=== PATIENT | female | born 1990 | race Hispanic/Latino ===

== ENCOUNTER 2018-11-20 18:42 | Emergency (ER) | payer MEDICAID ==
[~2018-11-20 18:42] MED LIST: IBUP-2070 PO; TRAM50TA4 PO
[2018-11-20] MEDS ORDERED: ACETAMINOPHEN 325 MG TAB ONE (19:17)
[2018-11-20 19:27] LABS: APPEARANCE,URINE SLIGHTLY CLOUDY (CLEAR); BILIRUBIN,URINE Negative (NEGATIVE); COLOR,URINE Yellow (YELLOW); GLUCOSE, URINE (UA) Negative (NEGATIVE); KETONES,URINE Negative (NEGATIVE); LEUKOCYTE ESTERASE ,URINE Moderate (NEGATIVE); NITRATE,URINE Negative (NEGATIVE); OCCULT BLOOD,URINE Negative (NEGATIVE); PH,URINE 5.5 (5.0-8.0); PROTEIN,URINE Negative (NEGATIVE)
[2018-11-20 19:32] LABS: BACTERIA,URINE Few /HPF (None Seen); SQUAMOUS EPITHELIAL CELL,UR Few /HPF (0-2)
[2018-11-20 19:44] LABS: BASOPHILS % (AUTO) 0.5 % (0.0-5.0); EOSINOPHILS % (AUTO) 0.8 % (0.0-8.0); HEMATOCRIT 34.8 % (36-48); LYMPHOCYTES % (AUTO) 26.9 % (21.0-51.0); MEAN CORPUSCULAR HEMOGLOBIN 28.1 pg (27.0-33.0); MEAN CORPUSCULAR HGB CONC 33.6 g/dL (32.0-36.0); MEAN CORPUSCULAR VOLUME 83.6 fL (79-99); MONOCYTES % (AUTO) 5.7 % (3.0-13.0); NEUTROPHILS % (AUTO) 66.1 % (40.0-77.0); NUCLEATED RED BLOOD CELLS 0.1 % (0.0-0.19); PLATELET COUNT (AUTO) 260 K/uL (130-400); RED BLOOD CELL COUNT(AUTO) 4.16 MIL/uL (4.00-5.50); RED CELL DISTRIBUTION WIDTH 14.8 % (11.0-15.5); WHITE BLOOD COUNT (AUTO) 8.3 K/uL (4.8-10.8)
[2018-11-20 19:50] LABS: CREATININE 0.6 mg/dL (0.5-1.5); POTASSIUM 3.3 mmol/L (3.5-5.1)
[2018-11-20 20:15] LABS: ALBUMIN 3.9 g/dL (3.5-5.0); BILIRUBIN,TOTAL 0.2 mg/dL (0.2-1.0); TOTAL PROTEIN, SERUM 8.1 g/dL (6.0-8.3)
[2018-11-20] MEDS ORDERED: MAGNESIUM OXIDE 400 MG TABLET PO ONE (20:59)
[2018-11-20] MEDS ORDERED: POTASSIUM CHLORIDE 20 MEQ ERTAB PO ONE (20:59)
[2018-11-20] MEDS ORDERED: NITROFURANTOIN MONOHYD/M-CRYST 100 MG CAPSULE PO ONE (21:00)
== END 2018-11-20 21:16 | disposition home or self-care (01) ==
LOC: EDH 18:42
DX: O20.0 Threatened abortion (principal); O23.41 Unspecified infection of urinary tract in pregnancy, first trimester; E87.6 Hypokalemia; Z3A.01 Less than 8 weeks gestation of pregnancy; Z90.49 Acquired absence of other specified parts of digestive tract
CPT/HCPCS: 36415; 76817; 80053; 81001; 84702; 85025; 86900; 86901

== ENCOUNTER 2019-02-02 18:12 | Emergency (ER) | payer MEDICAID ==
[2019-02-02] MEDS ORDERED: DICYCLOMINE HCL 10 MG/ML 2ML AMP IM ONE (18:33)
[2019-02-02] MEDS ORDERED: LACTATED RINGERS 1000ML 1,000 ML IV ONE (18:33)
[2019-02-02] MEDS ORDERED: ONDANSETRON HCL 4 MG/2 ML VIAL ONE (18:33)
[2019-02-02 18:54] LABS: BASOPHILS % (AUTO) 0.5 % (0.0-5.0); EOSINOPHILS % (AUTO) 0.7 % (0.0-8.0); HEMATOCRIT 32.5 % (36-48); LYMPHOCYTES % (AUTO) 23.5 % (21.0-51.0); MEAN CORPUSCULAR HEMOGLOBIN 30.2 pg (27.0-33.0); MEAN CORPUSCULAR HGB CONC 35.4 g/dL (32.0-36.0); MEAN CORPUSCULAR VOLUME 85.3 fL (79-99); MONOCYTES % (AUTO) 5.5 % (3.0-13.0); NEUTROPHILS % (AUTO) 69.8 % (40.0-77.0); PLATELET COUNT (AUTO) 229 K/uL (130-400); RED BLOOD CELL COUNT(AUTO) 3.81 MIL/uL (4.00-5.50); RED CELL DISTRIBUTION WIDTH 13.1 % (11.0-15.5); WHITE BLOOD COUNT (AUTO) 7.2 K/uL (4.8-10.8)
[2019-02-02 18:57] LABS: CREATININE 0.4 mg/dL (0.5-1.5); POTASSIUM 3.8 mmol/L (3.5-5.1)
[2019-02-02 19:03] LABS: ALBUMIN 2.9 g/dL (3.5-5.0); BILIRUBIN,TOTAL 0.2 mg/dL (0.2-1.0); TOTAL PROTEIN, SERUM 6.9 g/dL (6.0-8.3)
[2019-02-02 20:22] LABS: APPEARANCE,URINE Cloudy (CLEAR); BILIRUBIN,URINE Negative (NEGATIVE); COLOR,URINE Yellow (YELLOW); GLUCOSE, URINE (UA) Negative (NEGATIVE); KETONES,URINE 40 mg/dL (NEGATIVE); LEUKOCYTE ESTERASE ,URINE Moderate (NEGATIVE); NITRATE,URINE Negative (NEGATIVE); OCCULT BLOOD,URINE Negative (NEGATIVE); PROTEIN,URINE Negative (NEGATIVE)
[2019-02-02] MEDS ORDERED: CEFTRIAXONE SODIUM 1 GM ONE (20:27)
[2019-02-02] MEDS ORDERED: SODIUM CHLORIDE 0.9% 50 ML IV ONE (20:27)
[2019-02-02 20:42] LABS: BACTERIA,URINE Few /HPF (None Seen)
[2019-02-02 20:43] LABS: SQUAMOUS EPITHELIAL CELL,UR 30-50 /HPF (0-2)
== END 2019-02-02 21:08 | disposition home or self-care (01) ==
LOC: EDH 18:12
DX: O23.42 Unspecified infection of urinary tract in pregnancy, second trimester (principal); O26.892 Other specified pregnancy related conditions, second trimester; R10.2 Pelvic and perineal pain; Z3A.16 16 weeks gestation of pregnancy; Z90.49 Acquired absence of other specified parts of digestive tract
CPT/HCPCS: 36415; 76805; 80053; 81001; 85025; 96372 ×2; 99285; J0500; J0696; J2405; J7120

== ENCOUNTER 2020-02-28 18:18 | Emergency (ER) | payer MEDICAID ==
[2020-02-28] MEDS ORDERED: PROMETHAZINE HCL 25 MG/ML 1ML AMPULE IM ONE (18:19)
[2020-02-28] MEDS ORDERED: SODIUM CHLORIDE 0.9% 1000ML 1,000 ML IV ONE (18:19)
[2020-02-28] MEDS ORDERED: KETOROLAC TROMETHAMINE 30MG/ML ONE (18:49)
[2020-02-28] MEDS ORDERED: CYCLOBENZAPRINE HCL 10 MG TABLET ONE (18:50)
[2020-02-28 19:11] LABS: BASOPHILS % (AUTO) 0.6 % (0.0-5.0); EOSINOPHILS % (AUTO) 1.2 % (0.0-8.0); HEMATOCRIT 36.5 % (36-48); LYMPHOCYTES % (AUTO) 42.1 % (21.0-51.0); MEAN CORPUSCULAR HEMOGLOBIN 26.9 pg (27.0-33.0); MEAN CORPUSCULAR HGB CONC 32.3 g/dL (32.0-36.0); MEAN CORPUSCULAR VOLUME 83.1 fL (79-99); MONOCYTES % (AUTO) 5.4 % (3.0-13.0); NEUTROPHILS % (AUTO) 50.4 % (40.0-77.0); PLATELET COUNT (AUTO) 280 K/uL (130-400); RED BLOOD CELL COUNT(AUTO) 4.39 MIL/uL (4.00-5.50); RED CELL DISTRIBUTION WIDTH 13.6 % (11.0-15.5); WHITE BLOOD COUNT (AUTO) 6.6 K/uL (4.8-10.8)
[2020-02-28 19:22] LABS: CREATININE 0.6 mg/dL (0.5-1.5); POTASSIUM 3.6 mmol/L (3.5-5.1)
[2020-02-28 19:32] LABS: ALBUMIN 4.3 g/dL (3.5-5.0); BILIRUBIN,TOTAL 0.2 mg/dL (0.2-1.0); TOTAL PROTEIN, SERUM 8.3 g/dL (6.0-8.3)
== END 2020-02-28 21:21 | disposition home or self-care (01) ==
LOC: EDH 18:18
DX: G44.209 Tension-type headache, unspecified, not intractable (principal); R03.0 Elevated blood-pressure reading, without diagnosis of hypertension; F41.9 Anxiety disorder, unspecified; Z98.890 Other specified postprocedural states
CPT/HCPCS: 36415; 70450; 71045; 80053; 84702; 85025; 96365; 96366; 96375; 99285; J1885; J2550; J7030

== ENCOUNTER 2021-02-17 06:55 | Emergency (ER) | payer OTHER, MEDICAID ==
[~2021-02-17] VITALS: Ht 152.4 cm; Wt 65.8 kg
[2021-02-17 07:37] LABS: BASOPHILS % (AUTO) 0.4 % (0.0-5.0); EOSINOPHILS % (AUTO) 0.2 % (0.0-8.0); LYMPHOCYTES % (AUTO) 8.1 % (21.0-51.0); MEAN CORPUSCULAR HEMOGLOBIN 27.7 pg (27.0-33.0); MEAN CORPUSCULAR HGB CONC 32.6 g/dL (32.0-36.0); MONOCYTES % (AUTO) 7.9 % (3.0-13.0); PLATELET COUNT (AUTO) 196 K/uL (130-400); RED BLOOD CELL COUNT(AUTO) 4.12 MIL/uL (4.00-5.50); RED CELL DISTRIBUTION WIDTH 14.4 % (11.0-15.5); WHITE BLOOD COUNT (AUTO) 4.6 K/uL (4.8-10.8)
[2021-02-17 07:49] LABS: APPEARANCE,URINE Clear (CLEAR); BILIRUBIN,URINE Negative (NEGATIVE); COLOR,URINE Yellow (YELLOW); GLUCOSE, URINE (UA) Negative (NEGATIVE); KETONES,URINE Negative (NEGATIVE); LEUKOCYTE ESTERASE ,URINE Negative (NEGATIVE); NITRATE,URINE Negative (NEGATIVE); OCCULT BLOOD,URINE Trace (NEGATIVE); PH,URINE 5.5 (5.0-8.0); PROTEIN,URINE Negative (NEGATIVE); UROBILINOGEN,URINE 0.2 mg/dL (0.2-1.0)
[2021-02-17 07:57] LABS: AMPHET/METH SCREEN,URINE NEGATIVE (NEGATIVE); BARBITURATE SCREEN, URINE NEGATIVE (NEGATIVE); BENZODIAZEPINES SCREEN,URINE NEGATIVE (NEGATIVE); CANNABINOID SCREEN,URINE NEGATIVE (NEGATIVE); COCAINE SCREEN,URINE NEGATIVE (NEGATIVE); OPIATE SCREEN,URINE NEGATIVE (NEGATIVE); PHENCYCLIDINE SCREEN,URINE NEGATIVE (NEGATIVE)
[2021-02-17 07:59] LABS: BACTERIA,URINE Rare /HPF (None Seen); RBC,URINE 0-1 /HPF (0-1); WBC,URINE 0-1 /HPF (0-1)
[2021-02-17 08:19] LABS: CREATININE 0.6 mg/dL (0.5-1.5); POTASSIUM 4.5 mmol/L (3.5-5.1)
[2021-02-17 08:23] LABS: ALBUMIN 4.1 g/dL (3.5-5.0); BILIRUBIN,TOTAL 0.1 mg/dL (0.2-1.0); TOTAL PROTEIN, SERUM 7.4 g/dL (6.0-8.3)
[2021-02-17] MEDS ORDERED: 0.9%NACL 1000ML 1,000 ML IV SCH (08:30)
[2021-02-17] MEDS ORDERED: KETOROLAC 30MG VIAL (30MG/ML) IV SCH (08:30)
[2021-02-17] MEDS ORDERED: LORA10TA7 PO (08:48)
[2021-02-17] MEDS ORDERED: SODI50SP2 NS (08:48)
[2021-02-17] MEDS ORDERED: ACET-66 PO (08:48)
[2021-02-17] MEDS ORDERED: CHOL100040 PO (08:48)
[2021-02-17 10:43] VITALS: BP 135/89
== END 2021-02-17 10:44 | disposition home or self-care (01) ==
LOC: EDH 06:55
DX: U07.1 COVID-19 (principal); G44.229 Chronic tension-type headache, not intractable; I10 Essential (primary) hypertension; F41.9 Anxiety disorder, unspecified; G43.909 Migraine, unspecified, not intractable, without status migrainosus; Z79.1 Long term (current) use of non-steroidal anti-inflammatories (NSAID)
CPT/HCPCS: 36415; 80053; 80305; 81001; 81025; 85025; 87635; 87804 ×2; 87880; 96361 ×2; 96374; 99283; C9803; J1885; J7030

== ENCOUNTER 2021-02-28 13:56 | Emergency (ER) | payer MEDICAID ==
[~2021-02-28] VITALS: Ht 152.4 cm; Wt 66.7 kg
[~2021-02-28 13:56] MED LIST changes: +ACET-66 PO; +CHOL100040 PO; +LORA10TA7 PO; +SODI50SP2 NS
[2021-02-28 14:04] VITALS: BP 140/85
[2021-02-28] MEDS ORDERED: CEFTRIAXONE 1G VIAL IM STA (15:46)
[2021-02-28] MEDS ORDERED: KETOROLAC 30MG VIAL (30MG/ML) IM ONE (16:00)
[2021-02-28] MEDS ORDERED: LIDOCAINE HCL-MPF 1% 2ML VIAL ONE (16:02)
[2021-02-28] MEDS ORDERED: IBUP-2070 PO (16:28)
[2021-02-28] MEDS ORDERED: AMOX-429 PO (16:28)
[2021-02-28] MEDS ORDERED: ACET1TAB25 PO (16:28)
== END 2021-02-28 16:39 | disposition home or self-care (01) ==
LOC: EDH 13:56
DX: N61.0 Mastitis without abscess (principal); F41.9 Anxiety disorder, unspecified; F32.A Depression, unspecified; I10 Essential (primary) hypertension; Z79.899 Other long term (current) drug therapy
CPT/HCPCS: 96372 ×2; 99284; J0696; J1885; J3490

== ENCOUNTER 2021-10-02 18:30 | Emergency (ER) | payer OTHER, MEDICAID ==
[~2021-10-02] VITALS: Ht 152.4 cm; Wt 71.2 kg
[~2021-10-02 18:30] MED LIST changes: +ACET-2079 PO; +AMOX-429 PO
[2021-10-02 20:00] LABS: BASOPHILS % (AUTO) 0.5 % (0.0-5.0); EOSINOPHILS % (AUTO) 1.6 % (0.0-8.0); HEMATOCRIT 33.5 % (36-48); MEAN CORPUSCULAR HEMOGLOBIN 26.3 pg (27.0-33.0); MEAN CORPUSCULAR HGB CONC 32.5 g/dL (32.0-36.0); MEAN CORPUSCULAR VOLUME 80.9 fL (79-99); MONOCYTES % (AUTO) 4.6 % (3.0-13.0); NEUTROPHILS % (AUTO) 48.6 % (40.0-77.0); PLATELET COUNT (AUTO) 241 K/uL (130-400); RED BLOOD CELL COUNT(AUTO) 4.14 MIL/uL (4.00-5.50); WHITE BLOOD COUNT (AUTO) 5.7 K/uL (4.8-10.8)
[2021-10-02] MEDS ORDERED: GUAIFENESIN-DM 200/20 MG 10 ML PO ONE (20:00)
[2021-10-02] MEDS ORDERED: IPRATROPIUM/ALBUTEROL SULFATE 3 ML SOLUTION IH ONE (20:00)
[2021-10-02 20:09] LABS: APPEARANCE,URINE Clear (CLEAR); BILIRUBIN,URINE Negative (NEGATIVE); COLOR,URINE Yellow (YELLOW); GLUCOSE, URINE (UA) Negative (NEGATIVE); KETONES,URINE Negative (NEGATIVE); LEUKOCYTE ESTERASE ,URINE Negative (NEGATIVE); NITRATE,URINE Negative (NEGATIVE); OCCULT BLOOD,URINE Negative (NEGATIVE); PH,URINE 8.5 (5.0-8.0); PROTEIN,URINE Negative (NEGATIVE)
[2021-10-02 20:09] LABS: CREATININE 0.7 mg/dL (0.5-1.5)
[2021-10-02 20:16] LABS: HCG,QUAL RESULT NEGATIVE (NEGATIVE)
[2021-10-02 20:16] LABS: ALBUMIN 3.5 g/dL (3.5-5.0); BILIRUBIN,TOTAL 0.1 mg/dL (0.2-1.0); TOTAL PROTEIN, SERUM 7.2 g/dL (6.0-8.3)
[2021-10-02 20:27] LABS: BACTERIA,URINE Few /HPF (None Seen); RBC,URINE 0-1 /HPF (0-1); SQUAMOUS EPITHELIAL CELL,UR Moderate /HPF (0-2); WBC,URINE 0-1 /HPF (0-1)
[2021-10-02 20:28] LABS: MUCUS,URINE Rare LPF (None Seen)
[2021-10-02] MEDS ORDERED: ALBU8.5H8 IH (21:08)
[2021-10-02] MEDS ORDERED: D-ME1POW16 PO (21:08)
[2021-10-02 21:19] VITALS: BP 148/87
== END 2021-10-02 21:20 | disposition home or self-care (01) ==
LOC: EDH 18:30
DX: J06.9 Acute upper respiratory infection, unspecified (principal); R06.00 Dyspnea, unspecified; F41.9 Anxiety disorder, unspecified; I10 Essential (primary) hypertension; Z79.1 Long term (current) use of non-steroidal anti-inflammatories (NSAID); Z90.49 Acquired absence of other specified parts of digestive tract
CPT/HCPCS: 36415; 71045; 80053; 81001; 81025; 84484; 85025; 85378; 94640

== ENCOUNTER 2022-07-02 11:30 | Emergency (ER) | payer MEDICAID, OTHER ==
[~2022-07-02] VITALS: Ht 152.4 cm; Wt 68.5 kg
[~2022-07-02 11:30] MED LIST changes: +ALBU8.5H8 IH; +D-ME1POW16 PO
[2022-07-02 11:53] VITALS: BP 135/81
[2022-07-02 12:20] LABS: APPEARANCE,URINE CLEAR (CLEAR); BILIRUBIN,URINE NEGATIVE (NEGATIVE); COLOR,URINE COLORLESS (YELLOW); GLUCOSE, URINE (UA) NEGATIVE (NEGATIVE); KETONES,URINE NEGATIVE (NEGATIVE); LEUKOCYTE ESTERASE ,URINE NEGATIVE Leu/uL (NEGATIVE); NITRATE,URINE NEGATIVE (NEGATIVE); OCCULT BLOOD,URINE NEGATIVE (NEGATIVE); PROTEIN,URINE NEGATIVE (NEGATIVE); UROBILINOGEN,URINE 0.2 mg/dL (0.2-1.0)
[2022-07-02 12:33] LABS: HCG,QUALITATIVE URINE NEGATIVE (NEGATIVE)
[2022-07-02] MEDS ORDERED: BENZ-39 PO (13:36)
[2022-07-02] MEDS ORDERED: OMEP20TA20 PO (13:36)
== END 2022-07-02 13:48 | disposition home or self-care (01) ==
LOC: EDH 11:30
DX: J06.9 Acute upper respiratory infection, unspecified (principal); R05.9 Cough, unspecified; K21.9 Gastro-esophageal reflux disease without esophagitis; I10 Essential (primary) hypertension; F41.9 Anxiety disorder, unspecified; Z20.822 Contact with and (suspected) exposure to COVID-19; Z79.899 Other long term (current) drug therapy; Z98.890 Other specified postprocedural states
CPT/HCPCS: 99284; 71045; 87635; 87880; 87804 ×2; 81003; 81025; C9803

== ENCOUNTER 2022-11-05 18:18 | Emergency (ER) | payer MEDICAID ==
[~2022-11-05] VITALS: Ht 152.4 cm; Wt 71.2 kg
[~2022-11-05 18:18] MED LIST changes: +BENZ-39 PO; +OMEP20TA20 PO
[2022-11-05 18:42] VITALS: BP 132/92; PULSE 90; RESP 16; O2SAT 98
== END 2022-11-05 20:17 | disposition left against medical advice (07) ==
LOC: EDH 18:18
DX: H92.03 Otalgia, bilateral (principal); Z53.21 Procedure and treatment not carried out due to patient leaving prior to being seen by health care provider

== ENCOUNTER 2022-12-09 00:40 | Emergency (ER) | payer MEDICAID ==
[~2022-12-09] VITALS: Ht 152.4 cm; Wt 72.6 kg
[2022-12-09] MEDS ORDERED: FLUORESCEIN SODIUM 1 STRIP STRIP ONE (00:50)
[2022-12-09] MEDS ORDERED: TETRACAINE HCL 0.5% 4 ML OPHTH SOLN ONE (00:50)
[2022-12-09] MEDS ORDERED: HYDROCODONE/ACETAMINOPHEN 5/325 MG TAB ONE (01:00)
[2022-12-09] MEDS ORDERED: HYDROCODONE/ACETAMINOPHEN 5/325 MG TAB PO ONE (01:30)
[2022-12-09 04:07] VITALS: BP 115/62; PULSE 78; RESP 18; O2SAT 98
== END 2022-12-09 04:22 | disposition home or self-care (01) ==
LOC: EDH 00:40
DX: S05.12XA Contusion of eyeball and orbital tissues, left eye, initial encounter (principal); I10 Essential (primary) hypertension; F41.9 Anxiety disorder, unspecified; Z90.49 Acquired absence of other specified parts of digestive tract; Z79.899 Other long term (current) drug therapy; Z98.890 Other specified postprocedural states; X58.XXXA Exposure to other specified factors, initial encounter; Y93.89 Activity, other specified; Y92.89 Other specified places as the place of occurrence of the external cause; Y99.8 Other external cause status
CPT/HCPCS: 70450; 70480

== ENCOUNTER 2023-06-24 11:47 | Emergency (ER) | payer MEDICAID, OTHER ==
[~2023-06-24] VITALS: Ht 152.4 cm; Wt 76.2 kg
[2023-06-24] MEDS ORDERED: CEPH500B PO (13:50)
[2023-06-24] MEDS ORDERED: MUPI22OI2 TP (13:50)
[2023-06-24] MEDS: DIPH,PERTUSS(ACELL),TET VAC/PF 0.5 ML VIAL IM ONE (14:20)
[2023-06-24 14:22] VITALS: BP 148/74; PULSE 78; RESP 18; O2SAT 99
== END 2023-06-24 14:28 | disposition home or self-care (01) ==
LOC: EDH 11:47
DX: S61.235A Puncture wound without foreign body of left ring finger without damage to nail, initial encounter (principal); L53.8 Other specified erythematous conditions; R21 Rash and other nonspecific skin eruption; I10 Essential (primary) hypertension; F41.9 Anxiety disorder, unspecified; N80.9 Endometriosis, unspecified; Z79.899 Other long term (current) drug therapy; Z90.49 Acquired absence of other specified parts of digestive tract; Z98.890 Other specified postprocedural states; X58.XXXA Exposure to other specified factors, initial encounter; Y93.89 Activity, other specified; Y92.89 Other specified places as the place of occurrence of the external cause; Y99.8 Other external cause status
CPT/HCPCS: 90471; 90715